=== PATIENT | female | born 1965 | race Caucasian/White ===

== ENCOUNTER 2019-09-19 11:34 | Emergency (ER) | payer SELFPAY ==
[~2019-09-19] VITALS: Ht 172.7 cm; Wt 79.4 kg
[2019-09-19] MEDS ORDERED: ASPirin 81 mg TAB PO ONE (12:00)
[2019-09-19 12:18] LABS: Basophils # (auto) 0 uL; Basophils % (auto) 0.3 % (0.0-2.0); Eosinophils # (auto) 0.1 uL; Hematocrit 42.5 % (36.0-46.0); Hemoglobin 14.6 g/dL (12.2-16.2); Lymphocytes # (auto) 2.6 uL; Lymphocytes % (auto) 42.9 % (10.0-50.0); Mean Corpuscular Hemoglobin 29.4 pg (28.0-32.0); Mean Corpuscular Hgb Conc. 34.2 g/dL (32.0-36.0); Monocytes # (auto) 0.3 uL; Monocytes % (auto) 5.5 % (0.0-12.0); Neutrophils % (auto) 49.3 % (37.0-80.0); Nucleated Red Blood Cells % 0.1 %; Platelet Count (auto) 248 10^3/uL (140-450); Red Blood Cells 4.95 10^6/uL (4.0-5.20); Red Cell Distribution Width 13.8 % (11.8-14.3)
[2019-09-19 12:30] LABS: Urine Bacteria FEW /hpf (None Seen); Urine Blood Negative /uL (Negative); Urine Hyaline Cast FEW /lpf (0 - 2); Urine Mucus FEW (None Seen); Urine Specific Gravity 1.016 (1.001-1.035); Urine WBC 16 /hpf (0 - 5)
[2019-09-19 12:32] LABS: Chloride 111 mmol/L (98-107); Potassium 3.6 mmol/L (3.5-5.1); Sodium 140 mmol/L (136-145)
[2019-09-19 12:41] LABS: Alanine Aminotransferase 25 U/L (13-56); Albumin 3.8 g/dL (3.4-5.0); Alkaline Phosphatase 121 U/L (45-117); Anion Gap 7 (5-15); Aspartate Aminotransferase 15 U/L (15-37); Bilirubin, Total 0.3 mg/dL (0.2-1.0); Blood Urea Nitrogen 16 mg/dL (7-18); Calcium 8.8 mg/dL (8.5-10.1); Carbon Dioxide 22 mmol/L (21-32); GFR African American 91 mL/min; GFR Non-African American 75 mL/min; Glucose 98 mg/dL (74-106); Total Protein 7.3 g/dL (6.4-8.2)
[2019-09-19 14:50] VITALS: BP 139/84
== END 2019-09-19 15:10 | disposition home or self-care (01) ==
LOC: ER 11:34
DX: R07.89 Other chest pain (principal); F41.9 Anxiety disorder, unspecified; F17.210 Nicotine dependence, cigarettes, uncomplicated; Z90.49 Acquired absence of other specified parts of digestive tract; Z90.710 Acquired absence of both cervix and uterus; Z88.0 Allergy status to penicillin
CPT/HCPCS: 36415; 71046; 80053; 81001; 84484; 85025; 93005

== ENCOUNTER 2019-12-06 14:12 | Inpatient (IN) | payer MEDICAID ==
[~2019-12-06] VITALS: Ht 172.7 cm; Wt 100.0 kg
[2019-12-06] MEDS ORDERED: SODIUM CHLORIDE 0.9% 1,000 ML IV ONE ×3 (14:27→15:07)
[2019-12-06 14:42] LABS: Urine Bacteria FEW /hpf (None Seen); Urine Blood TRACE /uL (Negative); Urine Specific Gravity 1.012 (1.001-1.035); Urine WBC 11 /hpf (0 - 5)
[2019-12-06 15:14] LABS: Basophils # (auto) 0 10 ^3/uL (0-0.2); Basophils % (auto) 0.7 % (0.0-2.0); Eosinophils # (auto) 0.1 10 ^3/uL (0-0.8); Hematocrit 43.4 % (36.0-46.0); Hemoglobin 14.8 g/dL (12.2-16.2); Lymphocytes # (auto) 2.2 10 ^3/uL (0.4-5.4); Lymphocytes % (auto) 37.4 % (10.0-50.0); Mean Corpuscular Hemoglobin 29.1 pg (28.0-32.0); Mean Corpuscular Volume 85.7 fL (80.0-100.0); Monocytes # (auto) 0.3 10 ^3/uL (0-1.3); Monocytes % (auto) 5.3 % (0.0-12.0); Neutrophils # (auto) 3.2 10 ^3/uL (1.6-8.6); Neutrophils % (auto) 54.6 % (37.0-80.0); Nucleated Red Blood Cells % 0.1 %; Platelet Count (auto) 256 10^3/uL (140-450); Red Blood Cells 5.07 10^6/uL (4.0-5.20); Red Cell Distribution Width 13.8 % (11.8-14.3); White Blood Cell 5.8 10^3/uL (4.4-10.8)
[2019-12-06] MEDS ORDERED: levoFLOXacin 500MG 100 ML IV ONE ×2 (15:15→16:15)
[2019-12-06 15:22] LABS: Albumin 3.9 g/dL (3.4-5.0); Anion Gap 8 (5-15); Blood Urea Nitrogen 13 mg/dL (7-18); Carbon Dioxide 24 mmol/L (21-32); Chloride 108 mmol/L (98-107); Glucose 101 mg/dL (74-106); Lipase 82 U/L (73-393); Potassium 3.4 mmol/L (3.5-5.1); Sodium 140 mmol/L (136-145)
[2019-12-06 15:27] LABS: Alanine Aminotransferase 24 U/L (13-56); Alkaline Phosphatase 111 U/L (45-117); Aspartate Aminotransferase 13 U/L (15-37); BUN/Creatinine Ratio 14.1; Bilirubin, Total 0.5 mg/dL (0.2-1.0); GFR African American 82 mL/min; GFR Non-African American 68 mL/min; Total Protein 7.7 g/dL (6.4-8.2)
[2019-12-06 15:46] LABS: INR 0.99 (0.9-1.15); Partial Thromboplastin Time 26.2 sec (23.64-32.05)
[2019-12-06] MEDS ORDERED: POTASSIUM CHL 20MEQ/100ML 100 ML IV ONE (16:00)
[2019-12-06] MEDS ORDERED: MORPHINE SULFATE 4 MG/ML SYR/VIAL IV ONE (16:00)
[2019-12-06] MEDS ORDERED: ONDANSETRON HCL 4 MG/2 ML VIAL IV ONE (16:00)
[2019-12-06] MEDS ORDERED: SODIUM CHLORIDE 0.9% 1,000 ML IV SCH (16:08)
[2019-12-06] MEDS ORDERED: MORPHINE SULF INJ 2 MG/ML SYRINGE 1ML IV PRN ×2 (16:15)
[2019-12-06] MEDS: FAMOTIDINE (10MG/ML) 2ML VL IV SCH (17:55)
[2019-12-06] MEDS: SOD CHL 0.9%/ KCL 40MEQ 1,000 ML IV SCH (17:56)
[2019-12-06 18:00] VITALS: BP 111/67
[2019-12-06] MEDS ORDERED: MORPHINE SULFATE 4 MG/ML SYR/VIAL IV PRN (21:15)
[2019-12-06] MEDS: PROMETHAZINE HCL 25 MG/ML 1ML IV PRN (21:25)
[2019-12-06] MEDS: metroNIDAZOLE 500MG/100ML 100 ML IV SCH (21:26)
[2019-12-06 22:00] VITALS: BP 124/77
[2019-12-06] MEDS: IBUPROFEN 800 MG TAB PO PRN (23:16)
[2019-12-07] MEDS: FAMOTIDINE (10MG/ML) 2ML VL IV SCH ×2 (04:28→15:36)
[2019-12-07 05:00] VITALS: BP 111/64
[2019-12-07] MEDS: SOD CHL 0.9%/ KCL 40MEQ 1,000 ML IV SCH ×2 (05:00→09:29)
[2019-12-07] MEDS ORDERED: TRAM50TA2 PO (05:31)
[2019-12-07] MEDS ORDERED: ONDA-144 PO (05:31)
[2019-12-07] MEDS: metroNIDAZOLE 500MG/100ML 100 ML IV SCH ×3 (05:36→21:52)
[2019-12-07] MEDS: PROMETHAZINE HCL 25 MG/ML 1ML IV PRN (05:36)
[2019-12-07 09:00] VITALS: BP 108/57
[2019-12-07 10:53] LABS: INR 1.04 (0.9-1.15); Partial Thromboplastin Time 26.2 sec (23.64-32.05)
[2019-12-07] MEDS: levoFLOXacin 500MG 100 ML IV SCH (10:56)
[2019-12-07] MEDS ORDERED: POVIDONE IODINE 10 % TOPICAL OINT 30GM TOP ONE (12:38)
[2019-12-07] MEDS ORDERED: SUCCINYLCHOLINE CHLORIDE 20 MG/ML 10ML VIAL IV ONE (12:42)
[2019-12-07] MEDS ORDERED: fentaNYL CITRATE 100 MCG/2 ML VL ONE (12:44)
[2019-12-07] MEDS ORDERED: MIDAZOLAM HCL 1MG/1ML-2 ML VIAL ONE (12:44)
[2019-12-07] MEDS ORDERED: ROCURONIUM 10MG/ML 10ML VIAL IV ONE (12:45)
[2019-12-07] MEDS ORDERED: SOD CHL 0.9%/ KCL 40MEQ 1,000 ML IV SCH (12:45)
[2019-12-07 13:00] VITALS: BP 118/71
[2019-12-07] MEDS ORDERED: METOCLOPRAMIDE HCL 5MG/ml INJ 2ml VIAL ONE (13:17)
[2019-12-07] MEDS ORDERED: NEOSTIGMINE 1 MG/ML INJ (10mg/10ML VIAL) ONE (13:47)
[2019-12-07] MEDS ORDERED: GLYCOPYRROLATE 0.2 MG/ML 1ML VIAL ONE (13:47)
[2019-12-07] MEDS ORDERED: ONDANSETRON HCL 4 MG/2 ML VIAL IV PRN ×2 (14:00→14:15)
[2019-12-07] MEDS: HYDROmorphone HCL 2 MG/ML VL IV PRN ×2 (14:15→14:25)
[2019-12-07] MEDS: D5W/SOD CHL 0.45%/KCL 20MEQ 1,000 ML IV SCH ×2 (14:54→22:20)
[2019-12-07 17:00] VITALS: BP 91/60
[2019-12-07] MEDS: IBUPROFEN 800 MG TAB PO PRN (20:11)
[2019-12-07 22:00] VITALS: BP 101/61
[2019-12-08] MEDS: HYDROmorphone HCL 2 MG/ML VL IV PRN ×3 (01:06→22:54)
[2019-12-08] MEDS: FAMOTIDINE (10MG/ML) 2ML VL IV SCH ×2 (04:22→16:55)
[2019-12-08 05:00] VITALS: BP 97/59
[2019-12-08] MEDS: metroNIDAZOLE 500MG/100ML 100 ML IV SCH ×3 (05:24→21:23)
[2019-12-08] MEDS: D5W/SOD CHL 0.45%/KCL 20MEQ 1,000 ML IV SCH ×3 (06:05→21:40)
[2019-12-08 06:43] VITALS: BP 113/69
[2019-12-08 07:40] LABS: Basophils # (auto) 0 10 ^3/uL (0-0.2); Basophils % (auto) 0.4 % (0.0-2.0); Eosinophils # (auto) 0.1 10 ^3/uL (0-0.8); Eosinophils % (auto) 1.3 % (0.0-7.0); Hematocrit 38.2 % (36.0-46.0); Hemoglobin 12.8 g/dL (12.2-16.2); Lymphocytes # (auto) 2.4 10 ^3/uL (0.4-5.4); Lymphocytes % (auto) 35.5 % (10.0-50.0); Mean Corpuscular Hemoglobin 29.1 pg (28.0-32.0); Mean Corpuscular Hgb Conc. 33.5 g/dL (32.0-36.0); Mean Corpuscular Volume 86.7 fL (80.0-100.0); Monocytes # (auto) 0.3 10 ^3/uL (0-1.3); Monocytes % (auto) 4.8 % (0.0-12.0); Neutrophils # (auto) 3.9 10 ^3/uL (1.6-8.6); Nucleated Red Blood Cells % 0.1 %; Platelet Count (auto) 222 10^3/uL (140-450); Red Cell Distribution Width 13.6 % (11.8-14.3); White Blood Cell 6.8 10^3/uL (4.4-10.8)
[2019-12-08 07:57] LABS: Calcium 8.2 mg/dL (8.5-10.1); Potassium 3.7 mmol/L (3.5-5.1)
[2019-12-08 08:01] LABS: BUN/Creatinine Ratio 14.7
[2019-12-08 08:25] VITALS: BP 117/74
[2019-12-08] MEDS: levoFLOXacin 500MG 100 ML IV SCH (10:15)
[2019-12-08] MEDS: IBUPROFEN 800 MG TAB PO PRN (10:15)
[2019-12-08 12:30] VITALS: BP 107/66
[2019-12-08] MEDS: PROMETHAZINE HCL 25 MG/ML 1ML IV PRN ×2 (13:15→22:35)
[2019-12-08 17:25] VITALS: BP 104/63
[2019-12-08 22:00] VITALS: BP 121/78
[2019-12-09] MEDS: FAMOTIDINE (10MG/ML) 2ML VL IV SCH ×2 (04:03→16:38)
[2019-12-09] MEDS: D5W/SOD CHL 0.45%/KCL 20MEQ 1,000 ML IV SCH ×2 (04:03→18:16)
[2019-12-09] MEDS: metroNIDAZOLE 500MG/100ML 100 ML IV SCH ×3 (05:07→21:20)
[2019-12-09] MEDS ORDERED: ACETAMINOPHEN 325 MG TAB PO PRN (05:15)
[2019-12-09 05:22] VITALS: BP 125/86
[2019-12-09 06:44] LABS: Hematocrit 37.6 % (36.0-46.0); Hemoglobin 12.7 g/dL (12.2-16.2)
[2019-12-09] MEDS: PROMETHAZINE HCL 25 MG/ML 1ML IV PRN ×2 (06:47→18:17)
[2019-12-09 07:00] LABS: Calcium 8.1 mg/dL (8.5-10.1); Potassium 3.8 mmol/L (3.5-5.1)
[2019-12-09 07:03] LABS: BUN/Creatinine Ratio 10.5
[2019-12-09 09:00] VITALS: BP 121/74
[2019-12-09] MEDS: cefTRIAXone 1GM/50ML D5W 50 ML IV SCH (10:31)
[2019-12-09] MEDS ORDERED: LACTULOSE 20Gm/30ML SOLN PO PRN (12:15)
[2019-12-09 13:00] VITALS: BP 126/83
[2019-12-09] MEDS ORDERED: HYDROCORTISONE SOD SUCC 100 MG/2ML INJ VIAL IV ONE (15:55)
[2019-12-09 16:49] VITALS: BP 149/76
[2019-12-09] MEDS ORDERED: HYDROcodone-ACET 5/325MG TAB PO PRN (17:30)
[2019-12-09 22:14] VITALS: BP 127/74
[2019-12-09] MEDS: ACETAMINOPHEN 325 MG TAB PO PRN (22:59)
[2019-12-10] MEDS: FAMOTIDINE (10MG/ML) 2ML VL IV SCH ×2 (04:15→18:08)
[2019-12-10] MEDS: D5W/SOD CHL 0.45%/KCL 20MEQ 1,000 ML IV SCH (04:30)
[2019-12-10 05:09] VITALS: BP 127/86
[2019-12-10] MEDS: metroNIDAZOLE 500MG/100ML 100 ML IV SCH ×3 (05:35→22:00)
[2019-12-10] MEDS: ACETAMINOPHEN 325 MG TAB PO PRN ×2 (05:36→18:20)
[2019-12-10 09:00] VITALS: BP 137/87
[2019-12-10] MEDS: cefTRIAXone 1GM/50ML D5W 50 ML IV SCH (09:40)
[2019-12-10 13:00] VITALS: BP 139/79
[2019-12-10] MEDS ORDERED: POTASSIUM CHL 20 Meq TABLET PO ONE (14:30)
[2019-12-10 17:00] VITALS: BP 147/87
[2019-12-10 22:00] VITALS: BP 116/74
[2019-12-11] MEDS: FAMOTIDINE (10MG/ML) 2ML VL IV SCH (04:40)
[2019-12-11 05:24] VITALS: BP 139/89
[2019-12-11] MEDS: metroNIDAZOLE 500MG/100ML 100 ML IV SCH ×2 (06:04→13:40)
[2019-12-11 07:30] LABS: Basophils # (auto) 0 10 ^3/uL (0-0.2); Basophils % (auto) 0.5 % (0.0-2.0); Eosinophils # (auto) 0.2 10 ^3/uL (0-0.8); Eosinophils % (auto) 3.3 % (0.0-7.0); Hematocrit 39.2 % (36.0-46.0); Hemoglobin 13.1 g/dL (12.2-16.2); Lymphocytes # (auto) 1.9 10 ^3/uL (0.4-5.4); Lymphocytes % (auto) 28.5 % (10.0-50.0); Mean Corpuscular Hemoglobin 28.6 pg (28.0-32.0); Mean Corpuscular Hgb Conc. 33.3 g/dL (32.0-36.0); Mean Corpuscular Volume 85.9 fL (80.0-100.0); Monocytes # (auto) 0.2 10 ^3/uL (0-1.3); Monocytes % (auto) 3.8 % (0.0-12.0); Neutrophils # (auto) 4.2 10 ^3/uL (1.6-8.6); Neutrophils % (auto) 63.9 % (37.0-80.0); Nucleated Red Blood Cells % 0.1 %; Platelet Count (auto) 252 10^3/uL (140-450); Red Blood Cells 4.57 10^6/uL (4.0-5.20); Red Cell Distribution Width 13.4 % (11.8-14.3); White Blood Cell 6.5 10^3/uL (4.4-10.8)
[2019-12-11 07:49] LABS: Calcium 8.7 mg/dL (8.5-10.1); Potassium 3.7 mmol/L (3.5-5.1)
[2019-12-11 07:51] LABS: BUN/Creatinine Ratio 10.5
[2019-12-11] MEDS: cefTRIAXone 1GM/50ML D5W 50 ML IV SCH (08:54)
[2019-12-11] MEDS: PROMETHAZINE HCL 25 MG/ML 1ML IV PRN (08:54)
[2019-12-11 09:00] VITALS: BP 123/71
[2019-12-11] MEDS ORDERED: METR500T PO (12:11)
[2019-12-11] MEDS ORDERED: NITR100C44 PO (12:11)
[2019-12-11] MEDS ORDERED: LEVO500T21 PO (12:11)
[2019-12-11 13:00] VITALS: BP 131/87
[2019-12-11 13:14] VITALS: BP 125/64
== END 2019-12-11 14:00 | disposition home or self-care (01) | DRG 234 ==
LOC: ER 14:12 → OVERFLOW 14:13 → TELE-CENTR 17:56
PROVIDERS: ADMIT Internal Medicine; ATTEND Internal Medicine
PROC: 0WJG4ZZ Inspection of Peritoneal Cavity, Percutaneous Endoscopic Approach (ICD-10-PCS; 2019-12-07)
PROC: 0DTJ0ZZ Resection of Appendix, Open Approach (ICD-10-PCS; principal; 2019-12-07 12:48)
DX: K35.80 Unspecified acute appendicitis (principal); E66.01 Morbid (severe) obesity due to excess calories; E87.6 Hypokalemia; N20.0 Calculus of kidney; K57.90 Diverticulosis of intestine, part unspecified, without perforation or abscess without bleeding; K66.0 Peritoneal adhesions (postprocedural) (postinfection); N39.0 Urinary tract infection, site not specified; B96.20 Unspecified Escherichia coli [E. coli] as the cause of diseases classified elsewhere; E66.3 Overweight; F17.210 Nicotine dependence, cigarettes, uncomplicated; F41.9 Anxiety disorder, unspecified; Z68.34 Body mass index [BMI] 34.0-34.9, adult; Z53.31 Laparoscopic surgical procedure converted to open procedure; Z88.0 Allergy status to penicillin; Z90.49 Acquired absence of other specified parts of digestive tract; Z90.710 Acquired absence of both cervix and uterus; Z82.49 Family history of ischemic heart disease and other diseases of the circulatory system; Z87.442 Personal history of urinary calculi; Z83.3 Family history of diabetes mellitus; Z80.0 Family history of malignant neoplasm of digestive organs
CPT/HCPCS: 36415; 71045; 74176; 80048; 80053; 80061; 81001; 83690; 83735; 84132; 84484; 85014; 85018; 85025; 85610; 85730; 86850; 86900; 86901; 87086; 87088; 87186; 88302; 97116; 97163; 97530; G0378; J0330; J0696; J1956; J2250; J2405; J3480; J3490

== ENCOUNTER 2020-05-25 22:20 | Emergency (ER) | payer SELFPAY ==
[~2020-05-25] VITALS: Ht 172.7 cm; Wt 88.5 kg
[~2020-05-25 22:20] MED LIST: LEVO500T21 PO; METR500T PO; NITR-87 PO; ONDA-144 PO; TRAM50TA2 PO
[2020-05-25] MEDS ORDERED: ACETAMINOPHEN 325 MG TAB PO ONE (23:45)
[2020-05-26 01:38] LABS: Urine Bacteria FEW /hpf (None Seen); Urine Blood 1+ /uL (Negative); Urine Mucus FEW (None Seen); Urine Specific Gravity 1.025 (1.001-1.035); Urine WBC 3 /hpf (0 - 5)
[2020-05-26 03:54] VITALS: BP 122/86
== END 2020-05-26 05:50 | disposition home or self-care (01) ==
LOC: ER 22:21
DX: U07.1 COVID-19 (principal); J06.9 Acute upper respiratory infection, unspecified
CPT/HCPCS: 36415; 71045; 81001; 87426